=== PATIENT | female | born 1995 | race American Indian/Alaskan Native ===

== ENCOUNTER 2021-04-17 12:45 | Emergency (ER) | payer SELFPAY ==
[2021-04-17 15:25] VITALS: BP 122/60
--- NOTE | 2021-04-17 15:34 | Emergency Department Report ---
ED General Adult HPI - General Chief complaint: Headache Stated complaint: BODY ACHES,MIGRAINES, NO PERIOD Time Seen by Provider: 04/17/21 15:31 Source: patient Mode of arrival: Ambulatory Limitations: No Limitations - History of Present Illness Initial comments: Patient is a 26-year-old female presents emergency room stating she wants to see if she is . Reports that she took [id number] urine test and states it was negative. States her last menstrual cycle was 03/15/2021. Patient reports that she is having body aches, lower abdominal discomfort, lower back discomfort, headache. She denies any fever, nausea, vomiting, diarrhea, neck stiffness, vision changes, numbness, weakness, dysuria, urinary symptoms, vaginal discharge, vaginal bleeding. Patient denies any past medical history. No allergies to medications. - Related Data Previous Rx's Medication Instructions Recorded Last Taken Type Butalb/Acetaminophen/Caffeine 1 cap PO Q8HR PRN #10 cap 04/17/21 Unknown Rx [Fioricet 50-300-40 mg CAP] Allergies Allergy/AdvReac Type Severity Reaction Status Date / Time No Known Allergies Allergy Unverified 04/17/21 15:16 ED Review of Systems ROS: Stated complaint: BODY ACHES,MIGRAINES, NO PERIOD Other details as noted in HPI Comment: All other systems reviewed and negative ED Past Medical Hx - Past Medical History Previous Medical History?: No Additional medical history: denies - Surgical History Past Surgical History?: Yes Additional Surgical History: x 2 - Social History Smoking Status: Former Smoker Substance Use Type: Alcohol - Medications Home Medications: Home Medications Medication Instructions Recorded Confirmed Last Taken Type Butalb/Acetaminophen/Caffeine 1 cap PO Q8HR PRN #10 cap 04/17/21 Unknown Rx [Fioricet 50-300-40 mg CAP] ED Physical Exam - General Limitations: No Limitations General appearance: alert, in no apparent distress - Head Head exam: Present: atraumatic, normocephalic - Eye Eye exam: Present: normal appearance, PERRL, EOMI - ENT ENT exam: Present: mucous membranes moist - Respiratory Respiratory exam: Present: normal lung sounds bilaterally. Absent: respiratory distress, wheezes, rales, rhonchi, stridor, chest wall tenderness, accessory muscle use, decreased breath sounds, prolonged expiratory - Cardiovascular Cardiovascular Exam: Present: regular rate, normal rhythm, normal heart sounds. Absent: systolic murmur, diastolic murmur, rubs, gallop - GI/Abdominal GI/Abdominal exam: Present: soft, normal bowel sounds. Absent: distended, tenderness, guarding, rebound, rigid - Back Exam Back exam: Present: normal inspection, full ROM. Absent: tenderness, CVA tenderness (R), CVA tenderness (L), paraspinal tenderness, vertebral tenderness - Neurological Exam Neurological exam: Present: alert, oriented X3, CN II-XII intact, normal gait. Absent: motor sensory deficit, reflexes normal - Psychiatric Psychiatric exam: Present: normal affect, normal mood - Skin Skin exam: Present: warm, dry, intact ED Course Vital Signs 04/17/21 15:16 Temperature 98.2 F Pulse Rate 103 H Respiratory 16 Rate Blood Pressure 122/60 O2 Sat by Pulse 100 Oximetry ED Medical Decision Making - Lab Data Lab Results 04/17/21 Range/Units Unknown Urine Color Yellow (Yellow) Urine Turbidity Clear (Clear) Urine pH 6.0 (5.0-7.0) Ur Specific [place] 1.005 (1.003-1.030) Urine Protein <15 mg/dl (Negative) mg/dL Urine Glucose (UA) Neg (Negative) mg/dL Urine Ketones Tr (Negative) mg/dL Urine Blood Neg (Negative) Urine Nitrite Neg (Negative) Urine Bilirubin Neg (Negative) Urine Urobilinogen < 2.0 (<2.0) mg/dL Ur Leukocyte Esterase Neg (Negative) Urine WBC (Auto) 1.0 (0.0-6.0) /HPF Urine RBC (Auto) 2.0 (0.0-6.0) /HPF U Epithel Cells (Auto) 2.0 (0-13.0) /HPF Urine Bacteria (Auto) 4+ (Negative) /HPF Urine HCG, Qual Negative (Negative) - Medical Decision Making Patient is a 26-year-old female presents emergency room stating she wants to see if she is . Reports that she took [id number] urine test and states it was negative. States her last menstrual cycle was 03/15/2021. Patient reports that she is having body aches, lower abdominal discomfort, lower back discomfort, headache. She denies any fever, nausea, vomiting, diarrhea, neck stiffness, vision changes, numbness, weakness, dysuria, urinary symptoms, vaginal discharge, vaginal bleeding. Patient denies any past medical history. No allergies to medications. Initial vitals with very mild tachycardia, on repeat patient's heart rate is 96 bpm and oxygen saturation is 100% on room air, otherwise vitals are normal. No abnormality on physical examination as documented in chart. UA without WBCs, RBCs, nitrites, or leukocyte esterase, urine culture sent. Urine is negative. Patient given prescription for Fioricet. Advised patient Please take medication as prescribed as needed for headache. Increase your fluid intake over the next several days. Follow-up with a primary care doctor for reexamination. Follow-up with [facility]. Return to emergency room for any new or worsening symptoms. Recommend for you to get outpatient COVID-19 testing and to self quarantine for 10 days from onset of symptoms of positive. Critical care attestation.: If time is entered above; I have spent that time in minutes in the direct care of this critically ill patient, excluding procedure time. ED Disposition Clinical Impression: Body aches, Abdominal discomfort, Discomfort of back, Missed menses Headache Qualifiers: Headache type: unspecified Headache chronicity pattern: acute headache Intractability: not intractable Qualified Code(s): R51.9 - Headache, unspecified Disposition: 01 HOME / SELF CARE / HOMELESS Is pt being admited?: No Does the pt Need Aspirin: No Condition: Stable Additional Instructions: Please take medication as prescribed as needed for headache. Increase your fluid intake over the next several days. Follow-up with a primary care doctor for reexamination. Follow-up with [facility]. Return to emergency room for any new or worsening symptoms. Recommend for you to get outpatient COVID-19 testing and to self quarantine for 10 days from onset of symptoms of positive. Prescriptions: Butalb/Acetaminophen/Caffeine [Fioricet 50-300-40 mg CAP] 1 cap PO Q8HR PRN #10 cap PRN Reason: headache Referrals: PRIMARY CARE, [Primary Care Provider] - 2-3 Days SURINDER LONDON MD [Staff Physician] - 2-3 Days Time of Disposition: 16:18 Print Language: ITALIAN
[2021-04-17 15:52] LABS: Bacteria,Urine 4+ /HPF (Negative); Bilirubin,Urine NEG (Negative); Blood,Urine NEG (Negative); Color,Urine Yellow (Yellow); Protein,Urine <15 mg/dL mg/dL (Negative); Urobilinogen,Urine < 2.0 mg/dL (<2.0)
[2021-04-17 15:58] LABS: HCG Qualitative,Urine Negative (Negative)
== END 2021-04-17 16:20 | disposition home or self-care (01) ==
LOC: ED 12:45
DX: M79.18 Myalgia, other site (principal); N91.2 Amenorrhea, unspecified; R10.30 Lower abdominal pain, unspecified; M54.9 Dorsalgia, unspecified; R51.9 Headache, unspecified; Z87.891 Personal history of nicotine dependence; Z72.89 Other problems related to lifestyle; Z98.890 Other specified postprocedural states; Z79.899 Other long term (current) drug therapy
CPT/HCPCS: 81001; 81025; 87086; 99283